=== PATIENT | female | born 1975 | race Caucasian/White ===

== ENCOUNTER 2022-03-07 12:56 | Emergency (ER) | payer BC ==
[~2022-03-07] VITALS: Ht 162.6 cm; Wt 131.5 kg
[2022-03-07 13:47] LABS: HEMOGLOBIN 13.3 gm/dl (12.3-15.3); RED BLOOD COUNT 4.47 M/UL (4.00-5.10); WHITE BLOOD COUNT 6.7 K/UL (4.5-11.0)
[2022-03-07 14:13] LABS: BUN/CREATININE RATIO 12 (0-10)
[2022-03-07] MEDS ORDERED: ONDANSETRON ODT4 MG SL (16:16)
== END 2022-03-07 19:05 | disposition home or self-care (01) ==
LOC: ER1 12:56
PROVIDERS: Physician Assistant
DX: U07.1 COVID-19 (principal); Z23 Encounter for immunization; J40 Bronchitis, not specified as acute or chronic; E86.0 Dehydration; E11.9 Type 2 diabetes mellitus without complications; K21.9 Gastro-esophageal reflux disease without esophagitis; Z88.1 Allergy status to other antibiotic agents
CPT/HCPCS: 0240U; 71045; 80053; 81001; 82550; 82553; 83690; 83874; 84484; 84703; 85025; 87077; 87086; 87186; 93005; 96360; 99284; M0222